=== PATIENT | female | born 1955 | race Caucasian/White ===

== ENCOUNTER 2023-05-23 21:05 | Inpatient (IN) ==
[2023-05-23] MEDS ORDERED: IOPAMIDOL 100 ML BOTTLE IV ONE ×2 (21:06)
[2023-05-23] MEDS ORDERED: ONDANSETRON 4 MG/2 ML VIAL IV ONE (21:31)
[2023-05-23] MEDS ORDERED: MINERAL OIL 1 DOSE ENEMA PR ONE ×2 (21:31→21:39)
[2023-05-23] MEDS ORDERED: 0.9 % SODIUM CHLORIDE 1,000 ML IV ONE ×2 (21:31→23:06)
[2023-05-23 21:36] LABS: POC Calcium, Ionized 1.24 (1.16-1.32); POC Creatinine 0.5 (0.6-1.2); POC Potassium 4.3 (3.3-5.1)
[2023-05-23] MEDS ORDERED: NA PHOS DI BA RC STA (21:48)
[2023-05-23] MEDS ORDERED: NA PHOS M B RC STA (21:48)
[2023-05-23] MEDS ORDERED: FLEETS ADULT 1 DOSE ENEMA PR ONE (21:50)
[2023-05-23 22:12] LABS: Basophils # (Auto) 0.03 K/mcL (0.00-0.30); Basophils % (Auto) 0.3 % (0.0-2.0); Eosinophils # (Auto) 0.02 K/mcL (0.00-0.70); Eosinophils % (Auto) 0.2 % (0.0-7.0); Hematocrit 42.1 % (34.1-44.9); Lymphocytes # (Auto) 0.72 K/mcL (1.50-4.80); Lymphocytes % (Auto) 7.3 % (15.5-49.0); Mean Cell Volume 86.8 fL (80.0-100.0); Mean Corpuscular HGB Conc 33.3 g/dL (31.0-36.0); Mean Platelet Volume 11.6 fL (8.8-12.5); Monocytes # (Auto) 0.75 K/mcL (0.10-0.90); Monocytes % (Auto) 7.6 % (1.0-12.0); Neutrophils % (Auto) 84.4 % (38.0-78.0); Platelet Count 205 K/mcL (140-440); RBC 4.85 M/mcL (3.59-5.38); Red Cell Distribution Width 12.6 % (11.5-14.5); WBC 9.8 K/mcL (4.5-11.0)
[2023-05-24] MEDS ORDERED: ONDANSETRON (PP) 4 MG TABLET SL ONE (00:12)
[2023-05-24] MEDS ORDERED: ONDANSETRON 4 MG/2 ML VIAL IV ONE (00:12)
[2023-05-24] MEDS ORDERED: IPRATROPIUM/ALBUTEROL 3 ML AMPUL.NEB NEB ONE (01:03)
[2023-05-24 01:36] LABS: proBNP 78.8 pg/mL (<125.0)
[2023-05-24] MEDS ORDERED: ENOXAPARIN 60 MG/0.6 ML SYRINGE SQ ONE (04:30)
[2023-05-24] MEDS ORDERED: morphine 4 MG/ML VIAL IV ONE (05:39)
[2023-05-24] MEDS ORDERED: MAGNESIUM HYDROXIDE 30 ML ORAL.SUSP PO PRN (10:17)
[2023-05-24] MEDS ORDERED: ACETAMINOPHEN 325 MG TABLET PO PRN (10:17)
[2023-05-24] MEDS: IPRATROPIUM/ALBUTEROL 3 ML AMPUL.NEB NEB SCH ×4 (10:44→21:39)
[2023-05-24 11:26] LABS: ALT/SGPT 25 U/L (<40); AST/SGOT 28 U/L (<32); Albumin 3.1 gm/dL (3.2-5.2); Albumin/Globulin Ratio 1.1 (1.0-2.3); Alkaline Phosphatase 70 U/L (39-117); Bilirubin,Total 0.3 mg/dL (0.1-1.0); Blood Urea Nitrogen 11 mg/dL (8-23); Calcium 9.3 mg/dL (8.6-10.4); Carbon Dioxide 23 mmol/L (22-30); Chloride 93 mmol/L (96-108); Globulin 2.9 gm/dL (2.2-3.7); Glomerular Filtration Rate 99; Glucose 79 mg/dL (70-105); Thyroid Stimulating Hormone 0.74 uIU/mL (0.27-5.01)
[2023-05-24] MEDS ORDERED: HEPARIN SOD,PORK IN 0.45% NACL 500 ML IV ONE (11:30)
[2023-05-24] MEDS: HEPARIN SOD,PORK IN 0.45% NACL 25,000 UNIT in PREMIX 1 BAG IV SCH (12:10)
[2023-05-24] MEDS: DOCUSATE SODIUM 100 MG CAPSULE PO SCH ×2 (12:16→21:37)
[2023-05-24] MEDS: cefTRIAXone 2 GM in DEXTROSE 5% IN WATER 50 ML IV SCH (12:30)
[2023-05-24] MEDS: AZITHROMYCIN 500 MG in DEXTROSE 5% IN WATER 250 ML IV SCH (12:30)
[2023-05-24 12:37] LABS: Partial Thromboplastin Time 38.7 sec (20.0-37.0); Prothrombin Time 13.8 sec (11.9-14.5)
[2023-05-24] MEDS: ONDANSETRON 4 MG/2 ML VIAL IV PRN (13:13)
[2023-05-24] MEDS: DEXTROSE 5%-LR 1,000 ML IV SCH (13:13)
[2023-05-24 13:16] LABS: Basophils # (Auto) 0.02 K/mcL (0.00-0.30); Basophils % (Auto) 0.3 % (0.0-2.0); Eosinophils # (Auto) 0.02 K/mcL (0.00-0.70); Eosinophils % (Auto) 0.3 % (0.0-7.0); Hematocrit 38.9 % (34.1-44.9); Hemoglobin 12.1 g/dL (11.2-15.7); Lymphocytes # (Auto) 0.96 K/mcL (1.50-4.80); Mean Cell Volume 93.1 fL (80.0-100.0); Mean Corpuscular HGB Conc 31.1 g/dL (31.0-36.0); Mean Platelet Volume 11.3 fL (8.8-12.5); Monocytes # (Auto) 0.68 K/mcL (0.10-0.90); Monocytes % (Auto) 10.7 % (1.0-12.0); Neutrophils % (Auto) 73.4 % (38.0-78.0); Platelet Count 176 K/mcL (140-440); RBC 4.18 M/mcL (3.59-5.38); Red Cell Distribution Width 12.8 % (11.5-14.5); WBC 6.4 K/mcL (4.5-11.0)
[2023-05-24] MEDS: diphenhydrAMINE 50 MG/ML VIAL IV PRN (14:27)
[2023-05-24] MEDS: hydrALAZINE 20 MG/ML VIAL IV PRN (14:27)
[2023-05-24] MEDS ORDERED: LORazepam 2 MG/ML VIAL IV PRN (15:14)
[2023-05-24] MEDS ORDERED: LORazepam 2 MG/ML VIAL ONE (15:18)
[2023-05-24] MEDS: LACTULOSE 20 GM/30 ML ORAL.SOL PO PRN (21:37)
[2023-05-24] MEDS: SENNOSIDES 1 TABLET PO PRN (21:37)
[2023-05-25] MEDS: diphenhydrAMINE 50 MG/ML VIAL IV PRN (02:43)
[2023-05-25] MEDS: LORazepam 0.5 MG TABLET PO PRN ×2 (02:57→12:09)
[2023-05-25] MEDS: oxyCODONE/APAP 5/325MG TABLET PO PRN ×2 (02:57→15:22)
[2023-05-25 06:56] LABS: Hemoglobin 10.7 g/dL (11.2-15.7); Mean Cell Volume 91.4 fL (80.0-100.0); Mean Corpuscular HGB Conc 31.5 g/dL (31.0-36.0); Mean Platelet Volume 11.6 fL (8.8-12.5); Platelet Count 187 K/mcL (140-440); RBC 3.72 M/mcL (3.59-5.38); Red Cell Distribution Width 12.6 % (11.5-14.5); WBC 6.1 K/mcL (4.5-11.0)
[2023-05-25 07:20] LABS: ALT/SGPT 25 U/L (<40); AST/SGOT 23 U/L (<32); Albumin 3.2 gm/dL (3.2-5.2); Albumin/Globulin Ratio 1.2 (1.0-2.3); Alkaline Phosphatase 63 U/L (39-117); Bilirubin,Total 0.3 mg/dL (0.1-1.0); Blood Urea Nitrogen 10 mg/dL (8-23); Calcium 9.5 mg/dL (8.6-10.4); Carbon Dioxide 29 mmol/L (22-30); Chloride 93 mmol/L (96-108); Globulin 2.6 gm/dL (2.2-3.7); Glomerular Filtration Rate 107; Glucose 100 mg/dL (70-105)
[2023-05-25] MEDS ORDERED: cefTRIAXone 2 GM VIAL ONE (08:04)
[2023-05-25] MEDS: PANTOPRAZOLE 40 MG TABLET PO SCH (08:10)
[2023-05-25] MEDS: DOCUSATE SODIUM 100 MG CAPSULE PO SCH ×2 (08:10→20:59)
[2023-05-25] MEDS: DEXTROSE 5%-LR 1,000 ML IV SCH (08:31)
[2023-05-25] MEDS: IPRATROPIUM/ALBUTEROL 3 ML AMPUL.NEB NEB SCH ×4 (08:58→21:11)
[2023-05-25] MEDS: cefTRIAXone 2 GM in DEXTROSE 5% IN WATER 50 ML IV SCH (09:19)
[2023-05-25] MEDS: FLEETS ADULT 1 DOSE ENEMA PR PRN (10:51)
[2023-05-25] MEDS: AZITHROMYCIN 500 MG in DEXTROSE 5% IN WATER 250 ML IV SCH (11:25)
[2023-05-25] MEDS: ONDANSETRON 4 MG/2 ML VIAL IV PRN (11:43)
[2023-05-25 15:18] LABS: Lymphocytes % 29 % (15-49); Monocytes % (Manual) 9 % (1-12); Platelet Estimate NORMAL (Normal); RBC Morphology NORMAL (Normal); Segmented Neutrophils % 62 % (38-78)
[2023-05-25] MEDS ORDERED: HEPARIN SOD,PORK IN 0.45% NACL 500 ML IV ONE (15:20)
[2023-05-25] MEDS: HEPARIN SOD,PORK IN 0.45% NACL 25,000 UNIT in PREMIX 1 BAG IV SCH (15:25)
[2023-05-25] MEDS: LACTULOSE 20 GM/30 ML ORAL.SOL PO PRN (20:59)
[2023-05-25] MEDS: SENNOSIDES 1 TABLET PO PRN (20:59)
[2023-05-26] MEDS: HEPARIN SOD,PORK IN 0.45% NACL 25,000 UNIT in PREMIX 1 BAG IV SCH (02:14)
[2023-05-26 05:56] LABS: Hematocrit 31.6 % (34.1-44.9); Hemoglobin 10.1 g/dL (11.2-15.7); Mean Cell Volume 89.3 fL (80.0-100.0); Mean Platelet Volume 11.5 fL (8.8-12.5); Platelet Count 163 K/mcL (140-440); RBC 3.54 M/mcL (3.59-5.38); Red Cell Distribution Width 12.4 % (11.5-14.5); WBC 4.9 K/mcL (4.5-11.0)
[2023-05-26 06:12] LABS: ALT/SGPT 20 U/L (<40); AST/SGOT 17 U/L (<32); Albumin 3.2 gm/dL (3.2-5.2); Albumin/Globulin Ratio 1.3 (1.0-2.3); Alkaline Phosphatase 59 U/L (39-117); Bilirubin,Total 0.2 mg/dL (0.1-1.0); Blood Urea Nitrogen 6 mg/dL (8-23); Calcium 9.3 mg/dL (8.6-10.4); Carbon Dioxide 34 mmol/L (22-30); Chloride 90 mmol/L (96-108); Globulin 2.4 gm/dL (2.2-3.7); Glomerular Filtration Rate 107; Glucose 94 mg/dL (70-105)
[2023-05-26] MEDS: DEXTROSE 5%-LR 1,000 ML IV SCH (06:21)
[2023-05-26] MEDS: ONDANSETRON 4 MG/2 ML VIAL IV PRN ×3 (07:30→18:33)
[2023-05-26] MEDS: LORazepam 0.5 MG TABLET PO PRN ×2 (08:01→21:04)
[2023-05-26] MEDS: PANTOPRAZOLE 40 MG TABLET PO SCH (08:01)
[2023-05-26] MEDS: IPRATROPIUM/ALBUTEROL 3 ML AMPUL.NEB NEB SCH ×4 (08:45→21:21)
[2023-05-26] MEDS: DOCUSATE SODIUM 100 MG CAPSULE PO SCH ×2 (09:40→21:00)
[2023-05-26] MEDS: cefTRIAXone 2 GM in DEXTROSE 5% IN WATER 50 ML IV SCH (09:40)
[2023-05-26] MEDS: AZITHROMYCIN 500 MG in DEXTROSE 5% IN WATER 250 ML IV SCH (11:16)
[2023-05-26] MEDS: FLEETS ADULT 1 DOSE ENEMA PR PRN (11:21)
[2023-05-26] MEDS ORDERED: SODIUM CHLORIDE 1 GM TABLET PO ONE (15:08)
[2023-05-26 15:17] LABS: Lymphocytes % 36 % (15-49); Monocytes % (Manual) 12 % (1-12); Platelet Estimate NORMAL (Normal); RBC Morphology NORMAL (Normal); Reactive Lymphocytes 4 % (0-2); Segmented Neutrophils % 48 % (38-78)
[2023-05-26] MEDS: hydrALAZINE 20 MG/ML VIAL IV PRN (17:19)
[2023-05-26] MEDS: diphenhydrAMINE 50 MG/ML VIAL IV PRN (19:39)
[2023-05-26] MEDS: SODIUM CHLORIDE 1 GM TABLET PO SCH (21:00)
[2023-05-26] MEDS ORDERED: PROCHLORPERAZINE 10 MG/2 ML VIAL IV PRN (21:31)
[2023-05-26] MEDS: PROMETHAZINE 25 MG/ML VIAL IV PRN (22:13)
[2023-05-27] MEDS: hydrALAZINE 20 MG/ML VIAL IV PRN (00:43)
[2023-05-27] MEDS ORDERED: HEPARIN SOD,PORK IN 0.45% NACL 500 ML IV ONE (01:24)
[2023-05-27] MEDS: HEPARIN SOD,PORK IN 0.45% NACL 25,000 UNIT in PREMIX 1 BAG IV SCH (01:28)
[2023-05-27] MEDS: LORazepam 0.5 MG TABLET PO PRN ×3 (05:42→21:06)
[2023-05-27 06:15] LABS: ALT/SGPT 19 U/L (<40); AST/SGOT 19 U/L (<32); Albumin 3.3 gm/dL (3.2-5.2); Albumin/Globulin Ratio 1.3 (1.0-2.3); Alkaline Phosphatase 65 U/L (39-117); Bilirubin,Direct < 0.2 mg/dL (0-0.3); Bilirubin,Total 0.3 mg/dL (0.1-1.0); Blood Urea Nitrogen 5 mg/dL (8-23); Calcium 9.7 mg/dL (8.6-10.4); Carbon Dioxide 33 mmol/L (22-30); Chloride 87 mmol/L (96-108); Globulin 2.6 gm/dL (2.2-3.7); Glomerular Filtration Rate 107; Glucose 90 mg/dL (70-105); Lactate Dehydrogenase 172 U/L (135-225); Phosphorous 2.4 mg/dL (2.5-4.5); Triglycerides 67 mg/dL (<150); Uric Acid 2.9 mg/dL (2.5-8.0)
[2023-05-27] MEDS ORDERED: HEPARIN 5,000 UNIT/ML VIAL IV ONE (06:58)
[2023-05-27] MEDS: DOCUSATE SODIUM 100 MG CAPSULE PO SCH ×2 (07:37→21:06)
[2023-05-27] MEDS: PANTOPRAZOLE 40 MG TABLET PO SCH (07:37)
[2023-05-27] MEDS: SODIUM CHLORIDE 1 GM TABLET PO SCH ×2 (07:37→16:11)
[2023-05-27] MEDS: IPRATROPIUM/ALBUTEROL 3 ML AMPUL.NEB NEB SCH ×4 (07:49→21:25)
[2023-05-27] MEDS ORDERED: MAGNESIUM SULFATE 2 GM/50 ML BAG IV ONE (07:53)
[2023-05-27] MEDS: cefTRIAXone 2 GM in DEXTROSE 5% IN WATER 50 ML IV SCH (09:04)
[2023-05-27] MEDS: PROMETHAZINE 25 MG/ML VIAL IV PRN (09:05)
[2023-05-27] MEDS: FLUoxetine HCL 20 MG CAPSULE PO SCH (09:05)
[2023-05-27] MEDS: OXYBUTYNIN CHLORIDE 5 MG TAB.XL.24H PO SCH ×2 (09:05→21:06)
[2023-05-27] MEDS: APIXABAN 5 MG TABLET PO SCH ×2 (09:05→21:06)
[2023-05-27] MEDS: LEVOTHYROXINE SODIUM 112 MCG TABLET PO SCH (09:05)
[2023-05-27] MEDS ORDERED: FUROSEMIDE 40 MG/4 ML VIAL IV ONE (11:28)
[2023-05-27] MEDS: AZITHROMYCIN 500 MG in DEXTROSE 5% IN WATER 250 ML IV SCH (11:42)
[2023-05-28 07:54] LABS: ALT/SGPT 24 U/L (<40); AST/SGOT 26 U/L (<32); Albumin 3.3 gm/dL (3.2-5.2); Albumin/Globulin Ratio 1.1 (1.0-2.3); Alkaline Phosphatase 71 U/L (39-117); Bilirubin,Direct < 0.2 mg/dL (0-0.3); Bilirubin,Total 0.4 mg/dL (0.1-1.0); Blood Urea Nitrogen 6 mg/dL (8-23); Calcium 10.1 mg/dL (8.6-10.4); Carbon Dioxide 37 mmol/L (22-30); Chloride 83 mmol/L (96-108); Glomerular Filtration Rate 107; Glucose 98 mg/dL (70-105); Lactate Dehydrogenase 171 U/L (135-225); Phosphorous 3.2 mg/dL (2.5-4.5); Triglycerides 53 mg/dL (<150); Uric Acid 3.7 mg/dL (2.5-8.0)
[2023-05-28] MEDS: PANTOPRAZOLE 40 MG TABLET PO SCH (08:16)
[2023-05-28] MEDS: LORazepam 0.5 MG TABLET PO PRN (08:16)
[2023-05-28] MEDS: LEVOTHYROXINE SODIUM 112 MCG TABLET PO SCH (08:16)
[2023-05-28] MEDS: APIXABAN 5 MG TABLET PO SCH (08:16)
[2023-05-28] MEDS: FLUoxetine HCL 20 MG CAPSULE PO SCH (08:17)
[2023-05-28] MEDS: DOCUSATE SODIUM 100 MG CAPSULE PO SCH (08:17)
[2023-05-28] MEDS: OXYBUTYNIN CHLORIDE 5 MG TAB.XL.24H PO SCH (08:17)
[2023-05-28] MEDS: IPRATROPIUM/ALBUTEROL 3 ML AMPUL.NEB NEB SCH ×2 (08:45→13:37)
[2023-05-28] MEDS ORDERED: AZITHROMYCIN 250 MG TABLET PO SCH (09:00)
[2023-05-28] MEDS: cefTRIAXone 2 GM in DEXTROSE 5% IN WATER 50 ML IV SCH (11:16)
== END 2023-05-28 13:51 | disposition hospice, inpatient (51) | DRG 175 ==
LOC: ED 21:05 → MEDSUR 05-24 10:02 → ICU 05-24 11:21
PROVIDERS: ADMIT Internal Medicine; ATTEND Internal Medicine